=== PATIENT | female | born 1960 | race Caucasian/White ===

== ENCOUNTER 2018-04-05 07:43 | Emergency (ER) | payer BC, SELFPAY ==
--- NOTE | 2018-04-05 07:44 | ED_ITS ---
HPI - Abdominal Pain General Chief Complaint: Abdominal Pain Stated Complaint: BELLY PAIN,VOMITING Time Seen by Provider: 04/05/18 07:43 Source: patient Mode of arrival: ambulatory Limitations: no limitations History of Present Illness HPI narrative: 58-year-old female here for evaluation of right-sided back pain that is radiating to her right lower abdomen. Patient states that it started yesterday. States it was a gradual onset but reached its maximum within a fairly short period of time. States that she initially thought that it was her sciatic pain but it turned out to be different because it is now radiating to her right lower quadrant. Has had some nausea and dry heaving. No fevers. Has been constant since yesterday. No history of renal stones. No problems with urination. States that she has been constipated recently. No prior abdominal surgeries. No recent travel. No recent antibiotic use. Related Data Previous Rx's Medication Instructions Recorded hydrocodone-acetaminophen 1 tab PO Q4H PRN #14 tab 04/05/18 ondansetron 4 mg PO QID PRN #10 tab 04/05/18 Allergies Allergy/AdvReac Type Severity Reaction Status Date / Time No Known Drug Allergies Allergy Verified 04/05/18 07:49 Review of Systems Constitutional Denies fever(s) and Denies headache(s) ENT Ears, Nose, Mouth, and Throat: Denies headache(s) Cardiovascular Denies chest pain, Denies palpitations and Denies dyspnea Respiratory Denies cough and Denies dyspnea Gastrointestinal Gastrointestinal: Reports abdominal pain, Denies change in stool character, Reports constipation, Denies diarrhea, Reports nausea and Reports vomiting Genitourinary Denies dysuria, Reports flank pain (Right), Denies urinary hesitancy, Denies urinary urgency and Denies vaginal discharge Musculoskeletal Reports back pain, Denies myalgias and Denies arthralgias Integumentary/Breasts Denies lesions, Denies rash and Denies wounds Neurologic Denies headache(s) Endocrine Denies palpitations Hematologic/Lymphatic Denies easy bleeding and Denies easy bruising [facility] Social History Smoking Status: Never smoker Exam Initial Vital Signs Initial Vital Signs: Vital Signs Temperature 97.3 F L 04/05/18 07:49 Pulse Rate 82 04/05/18 07:49 Respiratory Rate 18 04/05/18 07:49 Blood Pressure 135/73 H 04/05/18 07:49 Pulse Oximetry 100 04/05/18 07:49 Const General: cooperative, healthy appearing, in distress (Mild) and No ill appearing Orientation: alert, awake and oriented x3 HENMT Head: normal to inspection, normocephalic and atraumatic Resp Effort & Inspection: normal respiratory effort Auscultation: clear to auscultation bilaterally Cardio Rate: regular rate Rhythm: regular rhythm Pulses: radial pulses present GI Inspection: non-distended Palpation: soft, No guarding and No tender (No tenderness to palpation patient states that the pain is internal) Back/Spine/Pelvis Back: No CVA tenderness Skin General: no rashes or lesions noted Lesions: no lesions Rashes: no rashes Wounds: no wounds Neuro General: alert, awake and oriented x3 Cognition: normal cognition Speech: speech normal Gait: normal gait Extrem General: normal to inspection and capillary refill normal Psych Appearance: grossly normal and well kempt Course Orders Ordered: ED Orders 04/05/18 07:40 Basic Metabolic Panel Stat Complete Blood Count AUTO DIFF Stat 04/05/18 07:52 CT kidney ureter bladder (KUB) Stat Discontinued Medications Hydromorphone HCl (Dilaudid) 1 mg IV NOW ONE Stop: 04/05/18 08:53 Last Admin: 04/05/18 08:55 Dose: 1 mg Lidocaine HCl 6.1 ml/ Sodium (Chloride) 56.1 mls @ 336.6 mls/hr IV NOW ONE Stop: 04/05/18 08:16 Last Infusion: 04/05/18 08:48 Dose: 0 mls/hr Admin: 04/05/18 08:35 Dose: 336.6 mls/hr Sodium Chloride (Normal Saline 0.9%) 1,000 mls @ 1,000 mls/hr IV BOLUS ONE Stop: 04/05/18 09:59 Last Admin: 04/05/18 09:05 Dose: 1,000 mls/hr Ketorolac Tromethamine (Toradol) 30 mg IV NOW ONE Stop: 04/05/18 08:15 Last Admin: 04/05/18 08:23 Dose: 30 mg Morphine Sulfate (Morphine) 4 mg IV NOW ONE Stop: 04/05/18 07:50 Last Admin: 04/05/18 07:57 Dose: 4 mg Ondansetron HCl (Zofran) 4 mg IV NOW ONE Stop: 04/05/18 07:50 Last Admin: 04/05/18 07:58 Dose: 4 mg Vital Signs - 8 hr 04/05/18 07:49 04/05/18 08:04 Temperature 97.3 F L Pulse Rate 82 67 Respiratory Rate 18 26 H Blood Pressure 135/73 H Blood Pressure [Right Arm] 149/67 H Pulse Oximetry 100 100 MDM - Abdominal Pain Lab Data Attestation: I reviewed the patient's lab results. Result diagrams: 04/05/18 07:40 04/05/18 07:40 Lab Results 04/05/18 04/05/18 Range/Units 07:40 07:40 WBC 9.3 (4.5-11.0) X10^3/uL RBC 4.58 (4.0-5.2) X10^6/uL Hgb 13.7 (12.0-16.0) g/dL Hct 41.2 (36-46) % MCV 90.0 (80-100) fL MCH 30.0 (26-34) PG MCHC 33.3 (30-36) % RDW 13.4 (11.6-14.8) % Plt Count 258 (150-400) X10^3/uL Neut % (Auto) 66.8 (50-75) % Lymph % (Auto) 27.6 (25-40) % [place] % (Auto) 4.8 (3-14) % Eos % (Auto) 0.4 L (2-4) % Baso % (Auto) 0.4 (0-2) % Neut # (Auto) 6200 H (0398-2427) /uL Sodium 144 (137-145) mmol/L Potassium 4.1 (3.4-5.1) mmol/L Chloride 102 (98-107) mmol/L Carbon Dioxide 26 (22-32) mmol/L BUN 15 (7-17) mg/dL Creatinine 0.70 (0.52-1.04) mg/dL Estimated GFR > 60.0 (>60) mL/min BUN/Creatinine Ratio 21.4 (6-22) Glucose 121 H (70-100) mg/dL Calcium 10.0 (8.4-10.2) mg/dL Imaging Data CT scan - abdomen: Radiologist's impression: PROCEDURE: CT KIDNEY URETER BLADDER (KUB) INDICATIONS: 58 year-old female with right abdominal pain and possible kidney stone. TECHNIQUE: Noncontrast 5 mm thick sections acquired from the diaphragms to the symphysis. 5 mm thick coronal and sagittal reformats were then performed. For radiation dose reduction, the following was used: automated exposure control, adjustment of mA and/or kV according to patient size. COMPARISON: None. FINDINGS: Image quality: Excellent. Lung bases: Lung bases are clear. Heart size is normal. Urinary system: Both kidneys are normal in size. There is solitary 3 mm nonobstructing right renal stone. No hydronephrosis or perinephric fat stranding. Both ureters appear non-dilated throughout their expected courses. Bladder wall thickness is normal ; no calcified bladder stones. Other solid organs: Liver is normal in size, with widespread fatty infiltration and subcapsular fatty sparing around the gallbladder fossa. Gallbladder wall thickness is normal. Pancreas is normal in contours. Spleen is normal in size. No adrenal nodules. Peritoneum and bowel: Unenhanced bowel loops demonstrate normal wall thickness and caliber. The appendix appears normal. No free fluid or air. Nodes and vessels: No retroperitoneal or mesenteric adenopathy by size criteria. Aorta and inferior vena cava are normal in caliber, with mild aortoiliac atherosclerosis. Abdominal wall: No ventral hernias. Pelvis: No free pelvic fluid. No inguinal hernias or adenopathy. Uterus and ovaries are normal in size. Bones: No suspicious bony lesions. No vertebral body compression fractures. 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 IMPRESSION: 1. Solitary 3 mm nonobstructing right renal stone. No hydronephrosis. 2. Fatty infiltration of the liver. 3. The appendix appears normal. Dictated by: Vinh Ramirez M.D. on 04/05/2018 at 8:22 MDM Narrative Medical decision making narrative: Patient with 3 mm right ureteral stone which is consistent with her history and physical exam. No signs of infection. Creatinine unremarkable. Patient reports feeling much improvement after medicines here in the ER. She was given lidocaine and morphine and Dilaudid and Zofran. Patient is not from this area. She was given a prescription for home medication use. She was given return precautions. She expressed understanding and agreement with plan. Discharge Plan Departure Patient Disposition: Home, Self-Care Clinical Impression: Renal colic on right side, Right ureteral calculus Instructions: Kidney Stones (Alternative Therapy), DI for Kidney Stones Activity Restrictions/Additional Instructions: Take all of the medications as directed. Increase your fluid intake. Return to the emergency department for any new symptoms, worsening symptoms, inability to take your medication, fevers, inability to urinate, or any other concerning symptoms Prescriptions: New hydrocodone-acetaminophen 5-325 mg tablet 1 tab PO Q4H PRN (Reason: pain) Qty: 14 RF: 0 ondansetron 4 mg tablet,disintegrating 4 mg PO QID PRN (Reason: nausea and vomiting) Qty: 10 RF: 0
[2018-04-05 07:49] VITALS: BP 135/73; PULSE 82; RESP 18; TEMP 36.3; O2SAT 100; BMI 29.0
--- NOTE | 2018-04-05 07:52 | DI.CT.S_ITS ---
PROCEDURE: CT KIDNEY URETER BLADDER (KUB) INDICATIONS: 58 year-old female with right abdominal pain and possible kidney stone. TECHNIQUE: Noncontrast 5 mm thick sections acquired from the diaphragms to the symphysis. 5 mm thick coronal and sagittal reformats were then performed. For radiation dose reduction, the following was used: automated exposure control, adjustment of mA and/or kV according to patient size. COMPARISON: None. FINDINGS: Image quality: Excellent. Lung bases: Lung bases are clear. Heart size is normal. Urinary system: Both kidneys are normal in size. There is solitary 3 mm nonobstructing right renal stone. No hydronephrosis or perinephric fat stranding. Both ureters appear non-dilated throughout their expected courses. Bladder wall thickness is normal; no calcified bladder stones. Other solid organs: Liver is normal in size, with widespread fatty infiltration and subcapsular fatty sparing around the gallbladder fossa. Gallbladder wall thickness is normal. Pancreas is normal in contours. Spleen is normal in size. No adrenal nodules. Peritoneum and bowel: Unenhanced bowel loops demonstrate normal wall thickness and caliber. The appendix appears normal. No free fluid or air. Nodes and vessels: No retroperitoneal or mesenteric adenopathy by size criteria. Aorta and inferior vena cava are normal in caliber, with mild aortoiliac atherosclerosis. Abdominal wall: No ventral hernias. Pelvis: No free pelvic fluid. No inguinal hernias or adenopathy. Uterus and ovaries are normal in size. Bones: No suspicious bony lesions. No vertebral body compression fractures. 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 IMPRESSION: 1. Solitary 3 mm nonobstructing right renal stone. No hydronephrosis. 2. Fatty infiltration of the liver. 3. The appendix appears normal. Dictated by: Vinh Ramirez M.D. on 04/05/2018 at 8:22 Approved by: Vinh Ramirez M.D. on 04/05/2018 at 8:29
[2018-04-05] MEDS: MORPHINE 4 MG/ML INJ IV (07:57)
[2018-04-05] MEDS: ONDANSETRON 4 MG/2 ML INJ IV (07:58)
[2018-04-05 08:04] VITALS: BP 149/67; PULSE 67; RESP 26; O2SAT 100
[2018-04-05 08:08] LABS: Add Manual Diff / Slide Review NO; Basophils Percent Auto 0.4 % (0-2); Eosinophils Percent Auto 0.4 % (2-4); Hematocrit 41.2 % (36-46); Hemoglobin 13.7 g/dL (12.0-16.0); Lymphocytes Percent Auto 27.6 % (25-40); Mean Corpuscular HGB Conc 33.3 % (30-36); Monocytes Percent Auto 4.8 % (3-14); Neutrophils Absolute Auto 6200 /uL (3000-5900); Neutrophils Percent Auto 66.8 % (50-75); Platelet Count 258 X10^3/uL (150-400); Red Blood Cell Count 4.58 X10^6/uL (4.0-5.2); Red Cell Distribution Width 13.4 % (11.6-14.8); White Blood Cell Count 9.3 X10^3/uL (4.5-11.0)
[2018-04-05 08:13] LABS: BUN Creatinine Ratio 21.4 (6-22); Blood Urea Nitrogen 15 mg/dL (7-17); Carbon Dioxide 26 mmol/L (22-32); Chloride 102 mmol/L (98-107); Estimated Glomerular Filt Rate > 60.0 mL/min (>60); Glucose 121 mg/dL (70-100); HEMOLYSIS 19 (0-50); Potassium 4.1 mmol/L (3.4-5.1); Sodium 144 mmol/L (137-145)
[2018-04-05] MEDS: KETOROLAC 60 MG/2 ML VIAL 30 MG IV (08:23)
[2018-04-05] MEDS: LIDOCAINE 2% 6.1 ML in SODIUM CHLORIDE 0.9% 50 ML 336.6 ML IV (08:35)
[2018-04-05] MEDS: HYDROMORPHONE 0.5 MG INJ 1 MG IV (08:55)
[2018-04-05] MEDS: SODIUM CHLORIDE 0.9% 1,000 ML 1000 ML IV (09:05)
[2018-04-05] MEDS: ONDANSETRON 4 MG ODT PO (10:13)
[2018-04-05 10:14] VITALS: BP 111/53; PULSE 52; RESP 16; TEMP 37; O2SAT 99
== END 2018-04-05 10:15 | disposition home or self-care (01) ==
PROVIDERS: Emergency Provider Emergency Medicine
DX: N23 Unspecified renal colic (principal); N20.1 Calculus of ureter
CPT/HCPCS: 36591; 74176; 80048; 81003; 85025; 96361; 96374; 96375; 99283; 99284; J1170; J1885; J2270; J2405